=== PATIENT | female | born 1965 | race African-American/Black ===

== ENCOUNTER 2016-08-20 20:56 | Emergency (ER) | payer SELFPAY ==
[2016-08-20 21:02] VITALS: BP 121/70; BMI 50.8
[2016-08-20] MEDS ORDERED: TORADOL 60 MG VIAL IM ONE (21:47)
--- NOTE | 2016-08-20 21:48 | DR.GENAD ---
HPI - PCP Primary Care Physician: MICHELLE HEMPHILL - Complaint/Symptoms Chief Complaint:: BILATERAL BACK PAIN RADIATES DOWN LEG ONLY ON LEFT SIDE. O/S TUESDAY WHILE WORKING WITH PICKING UP [employer]. Self Treatment fo Chief Complaint: LORCET 10MG PO 3 HRS AGO , HELPS BUT NOT HOLDING. - Source History Provided: Patient - Mode of Arrival Mode of Arrival: Ambulatory - Timing Onset of Chief Complaint: 08/18/16 PMH - PMH Past Medical History: Yes Past Medical History: Arthritis, COPD, Diabetes, Gout Past Surgical History: Yes Surgical History: , Tonsillectomy - Family History History of Family Medical Conditions: Yes Family Medical History: Diabetes Mellitus, Cancer - Social History Type of Tobacco Use: Cigarettes Alcohol Use: Occasionally Do you use any recreational Drugs:: No Lives With: Family Lives Where: Home - infectious screening Have you traveled outside the country in the last 6 months?: No Isolation: Standard ROS - Review of Systems Constitutional: No Symptoms Reported Eyes: No Symptoms Reported ENTM: No Symptoms Reported Respiratoy: No Symptoms Reported Cardiovascular: No Symptoms Reported Gastrointestinal/Abdominal: No Symptoms Reported Genitourinary: No Symptoms Reported Neurological: No Symptoms Reported Musculoskeletal: Hip, Leg (pain radiating down left leg) Integumentary: No Symptoms Reported Hematologic/Lymphatic: No Symptoms Reported Endocrine: No Symptoms Reported Psychiatric: No Symptoms Reported All Other Systems: Reviewed and Negative PE - Vital Signs Vitals: Temperature 97.8 F Pulse Rate 84 Respiratory Rate 16 Blood Pressure 121/70 O2 Sat by Pulse Oximetry 98 - General Limitations: No Limitations General Appearance: Alert, In No Apparent Distress - Head Head Exam: Normal Inspection, Atraumatic - Eyes Eye exam: Normal Appearance, PERRL, EOMI - ENT ENT Exam: Normal Exam External Ear Exam: Normal External Inspection TM/Canal Exam: Bilateral Normal Nose Exam: Normal Nose Exam Mouth Exam: Normal Inspection Throat Exam: Normal Inspection - Neck Neck Exam: Normal Inspection - Chest Chest Inspection: Normal Inspection - Respiratory Respiratory Exam: Normal Lung Sounds Bilat Respiratory Exam: Bilateral Clear to Auscultation - Cardiovascular Cardiovascular Exam: Regular Rate - Abdominal Exam Abdominal Exam: Normal Inspection, Normal Bowel Sounds Abdominal Tenderness: negative: RUQ, RLQ, LUQ, LLQ, Epigastrium, Suprapubic, Diffuse, Mild, Moderate, Severe, Other - Extremities Extremities Exam: Normal Inspection, Full ROM - Back Back Exam: Normal Inspection - Neurologic Neurological Exam: Alert, Oriented X3, CN II-XII Intact - Psychiatric Psychiatric Exam: Normal Affect - Skin Skin Exam: Warm, Dry, Intact ROR - XRAY XRAY Interpreted by: Radiologist (Lumbar: Degenerative change of the lumbar spine without acute fracture.) - Diagnosis 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
[2016-08-20] MEDS ORDERED: TORADOL 60 MG VIAL ONE (21:49)
--- NOTE | 2016-08-20 22:16 | RAD ---
Lumbar spine three views Indication: Lower back pain. Findings: There is moderate multilevel disk degenerative change and facet arthropathy, generally wor se Henri with marginal osteophytes noted. Disc space narrowing is probably worst at L5-S1. Partial ly visualize thoracic spine DJD also noted. Mild SI joint DJD noted. Impression: Degenerative change of the lumbar spine without acute fracture. Reported By:
== END 2016-08-20 22:45 | disposition home or self-care (01) ==
LOC: ER 21:08
DX: M47.26 Other spondylosis with radiculopathy, lumbar region (principal)
CPT/HCPCS: 72100; 96372; 99282; J1885

== ENCOUNTER 2016-12-12 12:48 | Emergency (ER) | payer SELFPAY ==
[2016-12-12 12:54] VITALS: BP 166/100; BMI 49.6
[2016-12-12] MEDS ORDERED: TORADOL 60 MG VIAL IM ONE (15:50)
--- NOTE | 2016-12-12 15:50 | DR.GENAD ---
HPI - PCP Primary Care Physician: RADHIKA - Complaint/Symptoms Chief Complaint Doctors Comments: Patient states that she was working in [facility] last week and injured her back while trying to hold on to a heavy object. She had a CT of lumbar area that showed no fracture. She admits to low back pain. Report not available Chief Complaint:: PT C/O LOWER BACK PAIN. PT STATES SHE HURT HER LOWER BACK TUESDAY AT WORK. PT STATES THE OBJECT SHE WAS PICKING UP DROPPED AND SNATCHED HER DOWN AND SHE HAS BEEN HAVING PAIN EVER SINCE. - Source History Provided: Patient - Mode of Arrival Mode of Arrival: Ambulatory - Timing Onset of Chief Complaint: 12/08/16 PMH - PMH Past Medical History: Yes Past Medical History: Arthritis, COPD, Diabetes, Gout, Hypertension Past Surgical History: Yes Surgical History: , Tonsillectomy - Family History History of Family Medical Conditions: Yes Family Medical History: Diabetes Mellitus, Cancer - Social History Does patient currently use any type of tobacco product: Yes Have you used tobacco products in the last 12 months: Yes Type of Tobacco Use: Cigarettes Does any household member use tobacco: Yes Alcohol Use: Occasionally Do you use any recreational Drugs:: No Lives With: Family Lives Where: Home - infectious screening In the last 2 months have you had wt loss of >10#?: NO Have you had fever, night sweats or hemotysis?: No Have you traveled outside the country in the last 6 months?: No Isolation: Standard ROS - Review of Systems Eyes: No Symptoms Reported ENTM: No Symptoms Reported Respiratoy: No Symptoms Reported Cardiovascular: No Symptoms Reported Gastrointestinal/Abdominal: No Symptoms Reported Genitourinary: No Symptoms Reported Neurological: No Symptoms Reported Musculoskeletal: Back Pain Integumentary: No Symptoms Reported Hematologic/Lymphatic: No Symptoms Reported Endocrine: No Symptoms Reported Psychiatric: No Symptoms Reported All Other Systems: Reviewed and Negative PE - Vital Signs Vitals: Pulse Rate 81 Respiratory Rate 20 Blood Pressure 166/100 O2 Sat by Pulse Oximetry 97 - General General Appearance: Alert, In No Apparent Distress - Head Head Exam: Normal Inspection, Atraumatic - Eyes Eye exam: Normal Appearance, PERRL, EOMI - ENT ENT Exam: Normal Exam External Ear Exam: Normal External Inspection TM/Canal Exam: Bilateral Normal Nose Exam: Normal Nose Exam Mouth Exam: Normal Inspection Throat Exam: Normal Inspection - Neck Neck Exam: Normal Inspection, Full ROM - Chest Chest Inspection: Normal Inspection - Respiratory Respiratory Exam: Normal Lung Sounds Bilat Respiratory Exam: Bilateral Clear to Auscultation - Cardiovascular Cardiovascular Exam: Regular Rate, Normal Rhythm - Abdominal Exam Abdominal Exam: Normal Inspection, Normal Bowel Sounds Abdominal Tenderness: negative: RUQ, RLQ, LUQ, LLQ, Epigastrium, Suprapubic, Diffuse, Mild, Moderate, Severe, Other - Extremities Extremities Exam: Normal Inspection, Full ROM - Back Back Exam: Normal Inspection, Full ROM, Tenderness - Neurologic Neurological Exam: Alert, Oriented X3, CN II-XII Intact - Psychiatric Psychiatric Exam: Normal Affect - Skin Skin Exam: Warm, Dry, Intact Course - Reevaluation 1st: Unchanged - Diagnosis Discharge Problem: Muscle spasm Low back pain Qualifiers: Chronicity: acute Back pain laterality: midline Sciatica presence: without sciatica Qualified Code(s): M54.5 - Low back pain - Discharge Plan Condition: Stable - Follow ups/Referrals Follow ups/Referrals: Evelyn OLIVERc [Primary Care Provider] - 3 days - Instructions
[2016-12-12] MEDS ORDERED: TORADOL 60 MG VIAL ONE (16:02)
== END 2016-12-12 16:25 | disposition home or self-care (01) ==
LOC: ER 12:59
DX: M62.838 Other muscle spasm (principal); M54.5 Low back pain
CPT/HCPCS: 90471; 96372; 99281; 99282; J1885